=== PATIENT | female | born 2005 | race Caucasian/White ===

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

== ENCOUNTER 2025-03-24 12:13 | Emergency (ER) | payer MEDICAID, SELFPAY ==
[2025-03-24 12:24] VITALS: BP 127/75; PULSE 87; RESP 15; TEMP 36.8; O2SAT 98
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
[2025-03-24] MEDS: Acetaminophen 500 MG TAB 1000 MG PO (12:49)
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
[2025-03-24 14:27] VITALS: BP 98/39; PULSE 65; RESP 16; O2SAT 98
== END 2025-03-24 14:28 | disposition home or self-care (01) ==
PROVIDERS: Emergency Provider Emergency Medicine; PCP Nurse Practitioner
DX: S80.01XA Contusion of right knee, initial encounter (principal); W22.8XXA Striking against or struck by other objects, initial encounter; Y93.11 Activity, swimming
CPT/HCPCS: 99283 ×2; 81025; 73564